=== PATIENT | female | born 1935 | race Caucasian/White ===

== ENCOUNTER 2017-05-12 12:28 | Outpatient (CLI) | payer OTHER | END 2017-05-12 12:39 | disposition home or self-care (01) | LOC: LAB 12:28 | DX: R73.01 Impaired fasting glucose (principal); E78.2 Mixed hyperlipidemia; E03.8 Other specified hypothyroidism; N18.3 Chronic kidney disease, stage 3 (moderate); K21.9 Gastro-esophageal reflux disease without esophagitis; D05.02 Lobular carcinoma in situ of left breast; Z17.0 Estrogen receptor positive status [ER+]; Z90.12 Acquired absence of left breast and nipple ==

== ENCOUNTER → 2017-06-14 12:27 | Outpatient (CLI) | payer OTHER | END | disposition home or self-care (01) | LOC: LAB 12:27 | DX: N18.3 Chronic kidney disease, stage 3 (moderate) (principal); I10 Essential (primary) hypertension ==